=== PATIENT | female | born 1990 | race Caucasian/White ===

== ENCOUNTER 2018-01-17 15:15 | Inpatient (IN) | END 2018-01-20 16:15 | disposition home or self-care (01) | DRG 775 ==

== ENCOUNTER 2018-02-13 00:24 | Emergency (ER) | END 2018-02-13 02:50 | disposition home or self-care (01) ==

== ENCOUNTER 2018-05-18 19:11 | Emergency (ER) | END 2018-05-18 23:15 | disposition home or self-care (01) ==

== ENCOUNTER 2019-07-17 17:36 | Emergency (ER) | payer MEDICAID ==
[~2019-07-17] VITALS: Wt 70.0 kg
[~2019-07-17 17:36] MED LIST: CEPH-443 PO; FAMO-96 PO; LOPE2CAP PO; MAG355OR14 PO; NAPR-985 PO; ONDA4TAB8 PO; PREN-93 PO
[2019-07-17] MEDS ORDERED: SOD CHLORIDE 0.9% 1,000 ML IV STA (18:10)
[2019-07-17] MEDS ORDERED: ONDANSETRON 4 MG INJ IV STA (18:10)
[2019-07-17] MEDS ORDERED: KETOROLAC 15 MG INJ IV STA (18:10)
[2019-07-17 19:33] VITALS: BP 122/65; PULSE 73; RESP 18
== END 2019-07-17 19:35 | disposition home or self-care (01) ==
LOC: FTE 17:36
DX: N39.0 Urinary tract infection, site not specified (principal)
CPT/HCPCS: 36415; 76705; 80053; 81001; 81025; 83690; 85025; 96374; 96375; J1885; J2405; J7030; Z7502